=== PATIENT | female | born 1960 | race Hispanic/Latino ===

== ENCOUNTER → 2019-06-02 | Outpatient (CLI) | payer BC ==
[~2019-06-02] MED LIST: CALC-322 PO; CHOL500050 PO; CITALOPRAM PO; GABA600T10 PO; LISI-613 PO; [UNRECOGNIZED DRUG - OTHER] PO
== END | disposition home or self-care (01) ==
LOC: OIH 09:58
PROVIDERS: ATTEND Neurological Surgery
DX: M43.22 Fusion of spine, cervical region (principal)
CPT/HCPCS: 72040

== ENCOUNTER → 2019-07-22 | Outpatient (CLI) | payer BC | END | disposition home or self-care (01) | LOC: OIH 12:51 | PROVIDERS: ATTEND Physical Medicine & Rehabilitation | DX: M19.012 Primary osteoarthritis, left shoulder (principal) | CPT/HCPCS: 73030 ==